=== PATIENT | male | born 2000 | race African-American/Black ===

== ENCOUNTER 2018-11-27 14:38 | Emergency (ER) | payer SELFPAY | END 2018-11-27 14:50 | disposition left against medical advice (07) | LOC: UCEAST 14:38 | DX: Z11.3 Encounter for screening for infections with a predominantly sexual mode of transmission (principal); Z53.21 Procedure and treatment not carried out due to patient leaving prior to being seen by health care provider ==

== ENCOUNTER 2018-12-01 14:36 | Emergency (ER) | payer SELFPAY ==
[2018-12-01 16:47] VITALS: BP 155/81
--- NOTE | 2018-12-02 06:58 | ED ---
GI/ HPI - HPI Summary HPI Summary: Patient is a 18-year-old male presenting to the ED with chief complaint of 20 pound weight loss and anxiety over thinking he may have an STD. He states he was seen at urgent care a few days ago, but only had HIV testing. He is not sure why he did not do the other STD testing. He has been thinking he may have an STD for approximately 1 month, stating he has tried to take care of himself and shave, however he still feels he may have this. He denies any symptoms. He denies any burning, itching, pain. He is unsure if he was intimate with anyone who has a known STD. He states due to his anxiety over this and generalized anxiety, he endorses a 20 pound weight loss. He states he continues to eat and drink, however just lasts. He denies any other symptoms or complaints at this time. He states he would not like to speak with anybody and denies any SI or HI. - History of Current Complaint Chief Complaint: EDGeneral Time Seen by Provider: 12/01/18 15:56 Stated Complaint: ANXIETY PER PT Hx Obtained From: Patient Onset/Duration: Started Weeks Ago Timing: Constant Severity: Moderate Current Severity: Moderate Pain Intensity: 0 - Allergy/Home Medications Allergies/Adverse Reactions: Allergies Allergy/AdvReac Type Severity Reaction Status Date / Time No Known Allergies Allergy Verified 12/01/18 14:48 Home Medications: Home Medications NK [No Home Medications Reported] 12/01/18 [History Confirmed 12/01/18] PMH/Surg Hx/FS Hx/Imm Hx Previously Healthy: Yes - Immunization History Hx Pertussis Vaccination: No Immunizations Up to Date: Yes Infectious Disease History: Yes Infectious Disease History: Denies: Traveled Outside the [place] in Last 30 Days - Social History Occupation: Employed Part-time Lives: With Family Alcohol Use: None Hx Substance Use: No Substance Use Type: Reports: None Smoking Status (MU): Never Smoked Tobacco Review of Systems Constitutional: Negative Negative: Fever, Chills, Fatigue, Skin Diaphoresis Negative: Palpitations, Chest Pain Negative: Shortness Of Breath, Cough Genitourinary: Negative Positive: no symptoms reported, see HPI Negative: Arthralgia, Myalgia Neurological: Negative Positive: Anxious All Other Systems Reviewed And Are Negative: Yes Physical Exam Triage Information Reviewed: Yes Vital Signs On Initial Exam: Initial Vitals Temp Pulse Resp BP Pulse Ox 98.8 F 61 18 137/76 98 12/01/18 14:44 12/01/18 14:44 12/01/18 14:44 12/01/18 14:44 12/01/18 14:44 Vital Signs Reviewed: Yes Appearance: Positive: Well-Appearing, Well-Nourished Skin: Positive: Warm, Skin Color Reflects Adequate Perfusion Head/Face: Positive: Normal Head/Face Inspection Eyes: Positive: EOMI, JAMI, Conjunctiva Clear Neck: Positive: Supple, No Lymphadenopathy Respiratory/Lung Sounds: Positive: Clear to Auscultation, Breath Sounds Present Cardiovascular: Positive: RRR, Pulses are Symmetrical in both Upper and Lower Extremities Musculoskeletal: Positive: Normal, Strength/ROM Intact Neurological: Positive: Speech Normal Psychiatric: Positive: Normal, Affect/Mood Appropriate Diagnostics - Vital Signs Vital Signs Temp Pulse Resp BP Pulse Ox 12/01/18 16:46 98.3 F 56 18 155/81 100 12/01/18 14:44 98.8 F 61 18 137/76 98 - Laboratory Lab Statement: Any lab studies that have been ordered have been reviewed, and results considered in the medical decision making process. GIGU Course/Dx - Course Course Of Treatment: During the course of treatment, the patient's evaluated for anxiety symptoms over a possible STD infection. I've advised even though he does not have any symptoms, he is unsure if he has been anyone with an STD, I have advised he obtained testing today. He states his weight loss is secondary to his anxiety and he does not have any anxiety medications. He would not like to speak with anyone at this time. He states he would like to follow through with STD testing and denies any SI/HI. STD testing obtained on this date. Pending results. - Diagnoses Provider Diagnoses: Anxiety about health Discharge - Sign-Out/Discharge Documenting (check all that apply): Patient Departure Patient Received Moderate/Deep Sedation with Procedure: No - Discharge Plan Condition: Stable Disposition: HOME Patient Education Materials: Safe Sex (ED) Forms: *Work Release Referrals: Rogelio Gale MD [Primary Care Provider] - Additional Instructions: Will call with any positive results You may always call the ED in 2 days if you do not hear from us [phone] If you have any STD's - you are able to get treated for these without returning to the ED - Billing Disposition and Condition Condition: STABLE Disposition: Home
[2018-12-02 13:23] LABS: Neisseria gonorrhoeae (GC) RNA Negative (Negative)
== END 2018-12-01 16:46 | disposition home or self-care (01) ==
LOC: ED 14:36
DX: F41.9 Anxiety disorder, unspecified (principal); R63.4 Abnormal weight loss
CPT/HCPCS: 87491; 87591; 99282